=== PATIENT | male | born 1970 | race Caucasian/White ===

== ENCOUNTER 2017-07-03 16:34 | Inpatient (IN) | payer MEDICAID ==
--- NOTE | 2017-07-03 16:53 | CPEKG ---
Heart Rate: 118 RR Interval: 508 P-R Interval: 136 QRSD Interval: 84 QT Interval: 332 QTC Interval: 466 P Ogden: 77 QRS Ogden: 74 T Wave Ogden: 63 EKG Severity - OTHERWISE NORMAL ECG - EKG Impression: SINUS TACHYCARDIA Electronically Signed By: Migue Up 03-Jul-2017 17:06:40
--- NOTE | 2017-07-03 17:04 | EDPHY ---
H & P HPI/ROS: I did not see this patient while he was in the emergency department. Care was provided by another caregiver in our department Smoking Status: Current every day smoker Constitutional: Initial Vital Signs Temperature (C) 36.7 C 07/03/17 16:36 Heart Rate 123 H 07/03/17 16:36 Respiratory Rate 24 H 07/03/17 16:36 Blood Pressure 156/96 H 07/03/17 16:36 O2 Sat (%) 91 L 07/03/17 16:36 O2 Delivery Mode Room Air Allergies/Adverse Reactions: No Known Allergies Allergy (Unverified 07/03/17 16:41) Home Medications: Medication Instructions Recorded Cyclobenzaprine [Flexeril 10 MG 20 - 30 mg PO TID PRN 07/03/17 (*)] Docusate Sodium [Colace 100 MG (*)] 100 mg PO DAILY@14 07/03/17 Docusate Sodium [Colace 100 MG (*)] 300 mg PO HS 07/03/17 Methadone HCl [Methadone HCl 10 mg 75 mg PO DAILY@07/03/17 (*)] Naproxen 500 - 1,000 mg PO BID PRN 07/03/17 Ondansetron Odt [Zofran Odt 4 mg 4 mg PO TID PRN 07/03/17 (*)] Ranitidine HCl [Zantac] 300 - 450 mg PO TID PRN 07/03/17 Medical Decision Making - Diagnostics EKG Interpretation: EKG interpreted by me shows sinus tachycardia. Normal interval and axis. QRS is normal there is no significant ST elevation or depression. No arrhythmia. The ventricular response is 118 Imaging Results: Imaging Impressions Chest X-Ray 07/03/17 16:46 Impression: Rounded opacity in the right lower lung may represent a rounded pneumonia, however, a nodule or mass could have a similar appearance. Recommend follow-up chest x-ray in CT chest in 6-8 weeks to verify resolution. - Data Points Laboratory Results: Laboratory Results 07/03/17 17:00 07/03/17 17:00 07/03/17 07/03/17 07/03/17 17:00 17:00 17:00 WBC RBC Hgb Hct MCV MCH MCHC RDW Plt Count MPV Neut % (Auto) Lymph % (Auto) Wake % (Auto) Eos % (Auto) Baso % (Auto) Nucleat RBC Rel Count Absolute Neuts (auto) Absolute Lymphs (auto) Absolute Monos (auto) Absolute Eos (auto) Absolute Basos (auto) Absolute Nucleated RBC Immature Gran % Immature Gran # PT INR APTT D-Dimer VBG Lactic Acid 2.3 mmol/L H mmol/L (0.7-2.1) Sodium 138 mEq/L mEq/L (134-144) Potassium 4.1 mEq/L mEq/L (3.5-5.2) Chloride 100 mEq/L mEq/L (97-110) Carbon Dioxide 22 mEq/l mEq/l (22-31) Anion Gap 16 mEq/L mEq/L (8-16) BUN 28 mg/dL H mg/dL (7-23) Creatinine 2.2 mg/dL H mg/dL (0.7-1.3) Estimated GFR 32 Glucose 83 mg/dL mg/dL (70-100) Calcium 9.9 mg/dL mg/dL (8.5-10.4) Total Bilirubin 0.9 mg/dL mg/dL (0.1-1.4) Conjugated Bilirubin 0.8 mg/dL H mg/dL (0.0-0.5) Unconjugated Bilirubin 0.1 mg/dL mg/dL (0.0-1.1) AST 24 IU/L IU/L (17-59) ALT 27 IU/L IU/L (21-72) Alkaline Phosphatase 139 IU/L H IU/L (38-126) Troponin I < 0.012 ng/mL ng/mL (0.000-0.034) NT-Pro-B Natriuret Pep 85 pg/mL pg/mL (0-125) Total Protein 8.7 g/dL H g/dL (6.3-8.2) Albumin 4.3 g/dL g/dL (3.5-5.0) Lipase 137 IU/L IU/L (23-300) Procalcitonin Pending 07/03/17 07/03/17 17:00 17:00 WBC 17.04 10^3/uL H 10^3/uL (3.80-9.50) RBC 4.84 10^6/uL 10^6/uL (4.40-6.38) Hgb 14.1 g/dL g/dL (13.7-17.5) Hct 42.9 % % (40.0-51.0) MCV 88.6 fL fL (81.5-99.8) MCH 29.1 pg pg (27.9-34.1) MCHC 32.9 g/dL g/dL (32.4-36.7) RDW 13.3 % % (11.5-15.2) Plt Count 293 10^3/uL 10^3/uL (150-400) MPV 10.0 fL fL (8.7-11.7) Neut % (Auto) 83.1 % H % (39.3-74.2) Lymph % (Auto) 9.9 % L % (15.0-45.0) Wake % (Auto) 5.1 % % (4.5-13.0) Eos % (Auto) 0.1 % L % (0.6-7.6) Baso % (Auto) 0.4 % % (0.3-1.7) Nucleat RBC Rel Count 0.0 % % (0.0-0.2) Absolute Neuts (auto) 14.18 10^3/uL H 10^3/uL (1.70-6.50) Absolute Lymphs (auto) 1.68 10^3/uL 10^3/uL (1.00-3.00) Absolute Monos (auto) 0.87 10^3/uL H 10^3/uL (0.30-0.80) Absolute Eos (auto) 0.01 10^3/uL L 10^3/uL (0.03-0.40) Absolute Basos (auto) 0.06 10^3/uL 10^3/uL (0.02-0.10) Absolute Nucleated RBC 0.00 10^3/uL 10^3/uL (0-0.01) Immature Gran % 1.4 % H % (0.0-1.1) Immature Gran # 0.24 10^3/uL H 10^3/uL (0.00-0.10) PT 13.1 SEC SEC (12.0-15.0) INR 1.00 (0.83-1.16) APTT 31.1 SEC SEC (23.0-38.0) D-Dimer 0.52 ug/mLFEU H ug/mLFEU (0.00-0.50) VBG Lactic Acid Sodium Potassium Chloride Carbon Dioxide Anion Gap BUN Creatinine Estimated GFR Glucose Calcium Total Bilirubin Conjugated Bilirubin Unconjugated Bilirubin AST ALT Alkaline Phosphatase Troponin I NT-Pro-B Natriuret Pep Total Protein Albumin Lipase Procalcitonin Medications Given: Discontinued Medications Sodium Chloride (Ns) 1,000 mls @ 0 mls/hr IV EDNOW ONE; Wide Open PRN Reason: Protocol Stop: 07/03/17 17:15 Last Admin: 07/03/17 17:48 Dose: 1,000 mls Azithromycin 500 mg/ Dextrose 255 mls @ 255 mls/hr IV EDNOW ONE PRN Reason: Protocol Stop: 07/03/17 18:47 Last Admin: 07/03/17 19:16 Dose: 255 mls Ceftriaxone Sodium/Dextrose (Rocephin 1 Gm (Premix)) 50 mls @ 100 mls/hr IV EDNOW ONE PRN Reason: Protocol Stop: 07/03/17 18:17 Last Admin: 07/03/17 18:07 Dose: 50 mls Departure - Departure Disposition: [facility] Inpatient Acute Clinical Impression: Community acquired pneumonia, Sepsis, Shortness of breath, Acute chest pain Condition: Good
--- NOTE | 2017-07-03 17:07 | EDPHY ---
General - History Smoking Status: Current every day smoker Narrative: CHIEF COMPLAINT: Chest pain, shortness of breath HISTORY OF PRESENT ILLNESS: Patient complains of chest pain, shortness of breath, lightheaded dizziness. The chest pain started this morning. It is left-sided retrosternal. Worse with exertion. The shortness of breath is described as severe. Worse with any kind of exertion. Has to stop and take at rest with short distances of walking. No fever or chills. No cough. No abdominal pain. Some nausea but no vomiting. No diaphoresis. No recent travel or injury. No recent trauma or surgery. No history of venous thrombolic event. Denies previous coronary artery disease, stroke or heart attack. Denies any history of cardiac stress test or catheterization. No other associated complaints or modifying factors. REVIEW OF SYSTEMS: Ten systems reviewed and are negative unless otherwise noted in the HPI PAST MEDICAL HISTORY: Described as "multiple." Significant for rheumatoid arthritis and methadone use PAST SURGICAL HISTORY: Reviewed SOCIAL HISTORY: 1-2 pack per day smoker. No alcohol. No drug use. Lives and works here locally. FAMILY HISTORY: Positive for coronary artery disease in 1st degree family. EXAMINATION General Appearance: Alert, no distress Head: normocephalic, atraumatic Eyes: Pupils equal and round, no conjunctival pallor or injection ENT, Mouth: Poor dentition. Mucous membranes moist. Airway patent. Neck: Normal inspection, supple, non-tender Respiratory: Mild tachypnea. Scattered rhonchi. No consolidation, retractions or distress. No diminishment. Cardiovascular: Tachycardic rate. Regular rhythm. No murmur. Gastrointestinal: Abdomen is soft and nontender. No distention. No rigidity. Well-healed surgical incisions. Back: non-tender, no bony abnormalities Neurological: A&O, nonfocal, normal gait Skin: Warm and dry, no rash. No petechiae or purpura Extremities: Nontender, no pedal edema Psychiatric: Mood and affect normal DIFFERENTIAL DIAGNOSES: Including but not limited to ACS, CHF, pneumonia, PE, pleurisy, bronchitis, sepsis MDM: 4:55 p.m. Chest pain with shortness of breath, dizziness and near-syncope. He was tachycardic and tachypneic, thus I ordered lactic acid and blood cultures. Dr. Up has been notified of his SIRS criteria. He is in no acute distress. Laboratory studies pending. EKG does not reveal any ischemia. 5:15 p.m. Lactic acid is elevated 2.3, thus I have ordered IV fluid. Will obtain 2nd set of blood cultures and continue with workup. 5:45 p.m. Creatinine is 2.2. Patient says he has had issues with his kidneys last year. He does not know what is most recent creatinine was but knows that was abnormal last year. He had a complicated history with this. We will attempt to obtain out laboratory study. Does have leukocytosis with pneumonia on chest x-ray. Treat with Rocephin and Zithromax. I will discuss the abnormal creatinine, the equivocally elevated D-dimer with the hospitalist. 5:55 p.m. Attempt was made to contact his primary care physician. They have no documentation of any previous or recent creatinine. 6:05 p.m. Case discussed with hospitalist Dr. Avalos. She will admit the patient to her service. He is admitted in stable condition. He is admitted with diagnosis of sepsis without severe sepsis, community-acquired pneumonia. We discussed IV Rocephin and Zithromax for we discussed the elevated creatinine with uncertain chronicity. We also discussed the mildly elevated D-dimer. EKG: Interpreted by Dr. Up. Sinus tachycardia. No acute ischemia. Patient seen in conjunction with Dr. Up ([facility]) Medical Decision Making: I did not see this patient while he was in the emergency department. However his care was discussed with the PA while the patient was in the department. I agree with treatment plan and management (Migue Up) - Diagnostics Imaging Results: Imaging Impressions Chest X-Ray 07/03/17 16:46 Impression: Rounded opacity in the right lower lung may represent a rounded pneumonia, however, a nodule or mass could have a similar appearance. Recommend follow-up chest x-ray in CT chest in 6-8 weeks to verify resolution. - Objective Vital Signs: Initial Vital Signs Temperature (C) 36.7 C 07/03/17 16:36 Heart Rate 123 H 07/03/17 16:36 Respiratory Rate 24 H 07/03/17 16:36 Blood Pressure 156/96 H 07/03/17 16:36 O2 Sat (%) 91 L 07/03/17 16:36 O2 Delivery Mode Room Air Allergies/Adverse Reactions: No Known Allergies Allergy (Unverified 07/03/17 16:41) Home Medications: Medication Instructions Recorded Cyclobenzaprine [Flexeril 10 MG 20 - 30 mg PO TID PRN 07/03/17 (*)] Docusate Sodium [Colace 100 MG (*)] 100 mg PO DAILY@14 07/03/17 Docusate Sodium [Colace 100 MG (*)] 300 mg PO HS 07/03/17 Methadone HCl [Methadone HCl 10 mg 75 mg PO DAILY@07/03/17 (*)] Naproxen 500 - 1,000 mg PO BID PRN 07/03/17 Ondansetron Odt [Zofran Odt 4 mg 4 mg PO TID PRN 07/03/17 (*)] Ranitidine HCl [Zantac] 300 - 450 mg PO TID PRN 07/03/17 Laboratory Results: Laboratory Results 07/03/17 17:00 07/03/17 17:00 07/03/17 07/03/17 07/03/17 17:00 17:00 17:00 WBC RBC Hgb Hct MCV MCH MCHC RDW Plt Count MPV Neut % (Auto) Lymph % (Auto) Hale % (Auto) Eos % (Auto) Baso % (Auto) Nucleat RBC Rel Count Absolute Neuts (auto) Absolute Lymphs (auto) Absolute Monos (auto) Absolute Eos (auto) Absolute Basos (auto) Absolute Nucleated RBC Immature Gran % Immature Gran # PT INR APTT D-Dimer VBG Lactic Acid 2.3 mmol/L H mmol/L (0.7-2.1) Sodium 138 mEq/L mEq/L (134-144) Potassium 4.1 mEq/L mEq/L (3.5-5.2) Chloride 100 mEq/L mEq/L (97-110) Carbon Dioxide 22 mEq/l mEq/l (22-31) Anion Gap 16 mEq/L mEq/L (8-16) BUN 28 mg/dL H mg/dL (7-23) Creatinine 2.2 mg/dL H mg/dL (0.7-1.3) Estimated GFR 32 Glucose 83 mg/dL mg/dL (70-100) Calcium 9.9 mg/dL mg/dL (8.5-10.4) Total Bilirubin 0.9 mg/dL mg/dL (0.1-1.4) Conjugated Bilirubin 0.8 mg/dL H mg/dL (0.0-0.5) Unconjugated Bilirubin 0.1 mg/dL mg/dL (0.0-1.1) AST 24 IU/L IU/L (17-59) ALT 27 IU/L IU/L (21-72) Alkaline Phosphatase 139 IU/L H IU/L (38-126) Troponin I < 0.012 ng/mL ng/mL (0.000-0.034) NT-Pro-B Natriuret Pep 85 pg/mL pg/mL (0-125) Total Protein 8.7 g/dL H g/dL (6.3-8.2) Albumin 4.3 g/dL g/dL (3.5-5.0) Lipase 137 IU/L IU/L (23-300) Procalcitonin Pending 07/03/17 07/03/17 17:00 17:00 WBC 17.04 10^3/uL H 10^3/uL (3.80-9.50) RBC 4.84 10^6/uL 10^6/uL (4.40-6.38) Hgb 14.1 g/dL g/dL (13.7-17.5) Hct 42.9 % % (40.0-51.0) MCV 88.6 fL fL (81.5-99.8) MCH 29.1 pg pg (27.9-34.1) MCHC 32.9 g/dL g/dL (32.4-36.7) RDW 13.3 % % (11.5-15.2) Plt Count 293 10^3/uL 10^3/uL (150-400) MPV 10.0 fL fL (8.7-11.7) Neut % (Auto) 83.1 % H % (39.3-74.2) Lymph % (Auto) 9.9 % L % (15.0-45.0) Hale % (Auto) 5.1 % % (4.5-13.0) Eos % (Auto) 0.1 % L % (0.6-7.6) Baso % (Auto) 0.4 % % (0.3-1.7) Nucleat RBC Rel Count 0.0 % % (0.0-0.2) Absolute Neuts (auto) 14.18 10^3/uL H 10^3/uL (1.70-6.50) Absolute Lymphs (auto) 1.68 10^3/uL 10^3/uL (1.00-3.00) Absolute Monos (auto) 0.87 10^3/uL H 10^3/uL (0.30-0.80) Absolute Eos (auto) 0.01 10^3/uL L 10^3/uL (0.03-0.40) Absolute Basos (auto) 0.06 10^3/uL 10^3/uL (0.02-0.10) Absolute Nucleated RBC 0.00 10^3/uL 10^3/uL (0-0.01) Immature Gran % 1.4 % H % (0.0-1.1) Immature Gran # 0.24 10^3/uL H 10^3/uL (0.00-0.10) PT 13.1 SEC SEC (12.0-15.0) INR 1.00 (0.83-1.16) APTT 31.1 SEC SEC (23.0-38.0) D-Dimer 0.52 ug/mLFEU H ug/mLFEU (0.00-0.50) VBG Lactic Acid Sodium Potassium Chloride Carbon Dioxide Anion Gap BUN Creatinine Estimated GFR Glucose Calcium Total Bilirubin Conjugated Bilirubin Unconjugated Bilirubin AST ALT Alkaline Phosphatase Troponin I NT-Pro-B Natriuret Pep Total Protein Albumin Lipase Procalcitonin Medications Given: Discontinued Medications Sodium Chloride (Ns) 1,000 mls @ 0 mls/hr IV EDNOW ONE; Wide Open PRN Reason: Protocol Stop: 07/03/17 17:15 Last Admin: 07/03/17 17:48 Dose: 1,000 mls Azithromycin 500 mg/ Dextrose 255 mls @ 255 mls/hr IV EDNOW ONE PRN Reason: Protocol Stop: 07/03/17 18:47 Last Admin: 07/03/17 19:16 Dose: 255 mls Ceftriaxone Sodium/Dextrose (Rocephin 1 Gm (Premix)) 50 mls @ 100 mls/hr IV EDNOW ONE PRN Reason: Protocol Stop: 07/03/17 18:17 Last Admin: 07/03/17 18:07 Dose: 50 mls Departure - Departure Disposition: [facility] Inpatient Acute Clinical Impression: Shortness of breath, Acute chest pain Community acquired pneumonia Qualifiers: Laterality: right Lung location: lower lobe of lung Qualified Code(s): J18.1 - Lobar pneumonia, unspecified organism Sepsis Qualifiers: Sepsis type: sepsis due to unspecified organism Qualified Code(s): A41.9 - Sepsis, unspecified organism Condition: Good
[2017-07-03 17:14] LABS: % IMMATURE GRANULYOCYTES 1.4 % (0.0-1.1); ABSOLUTE IMMATURE GRANULOCYTES 0.24 10^3/uL (0.00-0.10); ADD DIFF? NO; ADD MORPH? NO; ADD SCAN? NO; ATYPICAL LYMPHOCYTE FLAG 10 (0-99); FRAGMENT RBC FLAG 0 (0-99); HEMATOCRIT 42.9 % (40.0-51.0); HEMOGLOBIN 14.1 g/dL (13.7-17.5); LEFT SHIFT FLG 10 (0-99); LIPEMIA HEMOLYSIS FLAG 80 (0-99); MEAN CELL HEMOGLOBIN 29.1 pg (27.9-34.1); MEAN CELL HEMOGLOBIN CONCENTR. 32.9 g/dL (32.4-36.7); MEAN CELL VOLUME 88.6 fL (81.5-99.8); PLATELET CLUMPS FLAG 0 (0-99); PLATELET COUNT 293 10^3/uL (150-400); RED BLOOD CELL COUNT 4.84 10^6/uL (4.40-6.38); RED CELL DISTRIBUTION WIDTH 13.3 % (11.5-15.2)
[2017-07-03] MEDS ORDERED: NS 1,000 ML IV ONE (17:14)
[2017-07-03 17:25] LABS: PROTIME(PATIENT) 13.1 SEC (12.0-15.0)
[2017-07-03 17:26] LABS: ALANINE AMINOTRANSFERASE 27 IU/L (21-72); ALBUMIN 4.3 g/dL (3.5-5.0); ALKALINE PHOSPHATASE 139 IU/L (38-126); ANION GAP 16 mEq/L (8-16); APTT 31.1 SEC (23.0-38.0); ASPARTATE AMINOTRANSFERASE 24 IU/L (17-59); BILIRUBIN,TOTAL 0.9 mg/dL (0.1-1.4); BILIRUBIN-CONJUGATED 0.8 mg/dL (0.0-0.5); BILIRUBIN-UNCONJUGATED 0.1 mg/dL (0.0-1.1); CALCIUM 9.9 mg/dL (8.5-10.4); CARBON DIOXIDE 22 mEq/l (22-31); CHLORIDE 100 mEq/L (97-110); CREATININE 2.2 mg/dL (0.7-1.3); GLOMERULAR FILTRATION RATE 32; GLUCOSE 83 mg/dL (70-100); POTASSIUM 4.1 mEq/L (3.5-5.2); SODIUM 138 mEq/L (134-144); TOTAL PROTEIN 8.7 g/dL (6.3-8.2)
[2017-07-03 17:38] LABS: TROPONIN I < 0.012 ng/mL (0.000-0.034)
[2017-07-03] MEDS ORDERED: AZITHROMYCIN IV 500 MG in D5W 250 ML IV ONE (17:48)
[2017-07-03 18:06] LABS: LACGHOST ORDER
[2017-07-03] MEDS ORDERED: ONDANSETRON DISINTEGRATING 4 MG TAB PO PRN (18:33)
[2017-07-03] MEDS ORDERED: ACETAMINOPHEN 325 MG TAB PO PRN (18:33)
[2017-07-03] MEDS ORDERED: IPRATROPIUM/ALBUTEROL 3 ML DEYVIAL IH PRN (18:33)
[2017-07-03] MEDS ORDERED: ONDANSETRON 4 MG/2 ML VIAL IVP PRN (18:33)
[2017-07-03] MEDS ORDERED: ASPIRIN 325 MG TAB PO ONE (18:40)
[2017-07-03] MEDS ORDERED: NS 1,000 ML IV SCH (18:45)
[2017-07-03] MEDS ORDERED: ALBUTEROL 3 ML DEYVIAL IH PRN (20:16)
[2017-07-03] MEDS ORDERED: ENOXAPARIN 60 MG/0.6 ML SYR SC ONE (20:20)
[2017-07-03] MEDS: DOCUSATE SODIUM 100 MG CAP PO SCH (20:22)
[2017-07-03] MEDS ORDERED: NICOTINE 21 MG/24 HR PATCH TD SCH (20:30)
[2017-07-03] MEDS: IPRATROPIUM/ALBUTEROL 3 ML DEYVIAL IH SCH (20:31)
[2017-07-03] MEDS ORDERED: FAMOTIDINE 20 MG TAB PO PRN (21:00)
--- NOTE | 2017-07-03 21:16 | GHP ---
[f rep st] HISTORY AND PHYSICAL DATE OF ADMISSION: 07/03/2017 CHIEF COMPLAINT: Chest pain, shortness of breath, and cough. HISTORY OF PRESENT ILLNESS: The patient is a 47-year-old male with a history of tobacco abuse and prior pneumonia complicated by empyema, for which he was hospitalized in [place] last year, presents to the emergency department with chest pain and shortness of breath. He denies fevers and chills. He denies any significant cough. He reports he has a chronic pain in his right chest, which has been present since he was admitted with pneumonia and an empyema requiring a chest tube last year in an [place] hospital. Today, he developed worsening shortness of breath, and felt like he could not catch his breath. This caused him to panic, and he presented to the emergency department. Upon arrival to the emergency department, he was tachycardic, though afebrile, and was saturating 91% on room air. Chest x-ray revealed rounded opacity in the right lower lobe, possibly representing pneumonia. In the emergency department, the patient was given a liter of normal saline, ceftriaxone, and azithromycin, and he is admitted to the hospital for further management. PAST MEDICAL HISTORY: 1. Tobacco abuse. 2. Chronic pain with chronic continuous opioid use, followed by a methadone clinic. 3. History of pneumonia with empyema, requiring a chest tube. 4. Possible chronic kidney disease. 5. History of kidney stones. MEDICATIONS: Please see [employer] for complete updated outpatient medication list. ALLERGIES: No known drug allergies. SOCIAL HISTORY: Single and lives independently. 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 He smokes 1-2 packs per day. He denies alcohol and drug use. FAMILY HISTORY: His mom had diabetes. He also reports a significant family history of heart disease. REVIEW OF SYSTEMS: A 10-point review of systems was performed and is negative except as per HPI. OBJECTIVE: VITAL SIGNS: Currently temperature 36.7, blood pressure 100/64, heart rate 97, respiratory rate 18, and 95% on room air. GENERAL: Awake, alert , oriented, and in no acute distress. HEENT: Head is atraumatic, normocephalic. Pupils equal, round, and reactive to light. Extraocular movements intact. Oropharynx is clear. Mucous membranes are moist. He has poor dentition and is missing multiple teeth. NECK: Supple. No JVD. HEART: Regular rate and rhythm. LUNGS: Diminished on the right side with faint crackles and decreased air exchange. ABDOMEN: Soft, nondistended, and nontender with normoactive bowel sounds. EXTREMITIES: Without cyanosis, clubbing, or edema. NEUROLOGIC: Grossly nonfocal. LABORATORY DATA: CBC: White blood cell count of 17,000 with 83% neutrophils. Lactic acid is elevated at 2.3. D-dimer 0.52. INR is 1. Complete metabolic panel is remarkable for BUN 28, creatinine 2.2. Alkaline phosphatase 139. Troponin is negative. BNP is normal. Chest x-ray shows a rounded opacity in the right lower lung, possibly representing a pneumonia versus nodule or mass. ASSESSMENT AND PLAN: The patient is a 47-year-old male with a history of tobacco abuse and prior pneumonia, who presents to the hospital with chest pain and shortness of breath. 1. Chest pain and dyspnea. The patient was treated for pneumonia in the emergency department with ceftriaxone and azithromycin. He does meet sepsis criteria with leukocytosis and tachycardia on arrival. In addition, he has an elevated lactate. However, he has had no fevers or significant cough and appears nontoxic. I ordered a CT of his chest without contrast, and this reveals multiple spiculated nodules worrisome for multifocal malignancy, the largest of which is 3.5 cm in the right middle lobe. Given his history of pneumonia last year, I query if that was a postobstructive process. In the setting of leukocytosis and sepsis criteria, I think it is reasonable to continue treatment for community-acquired pneumonia with ceftriaxone and azithromycin. Blood cultures are pending. Will continue to trend his lactate and his white blood cell count. I discussed the case with Dr. Shaneka Norton, oncology, who will see the patient tomorrow. We will need to determine if any of these pulmonary nodules are amenable to biopsy. Will defer further imaging, such as a PET scan, to oncology service. I also suspect his emphysema is playing a role in his dyspnea. Will start him on scheduled DuoNeb with p.r.n. albuterol nebulizations. He is not requiring oxygen. I also consider pulmonary embolism. His D-dimer is just minimally elevated at 0.52. Unfortunately, he cannot undergo a CT pulmonary angiogram at this time given his elevated creatinine. Currently, his tachycardia is resolved and he is not hypoxemic; however, he is certainly at risk for thromboembolic disease given the CT findings are concerning for malignancy. I will give him a dose of therapeutic Lovenox tonight, and if his creatinine is improved in the morning with hydration, he could undergo CT pulmonary angiogram; otherwise, could consider a V/Q scan. 2. Multiple pulmonary nodules. As above, these are concerning for malignancy. Oncology consultation is requested. He may warrant further imaging. 3. Acute kidney injury. It is unclear if he has chronic kidney disease; though , he seems to think that is the case. I will check a urinalysis as well as a urine creatinine and urine sodium to calculate a FENa for further evaluation. In addition, will give him some gentle IV fluid hydration overnight and recheck his kidney function in the morning. Consider CT abd/pelvis in am given above if creatinine improved. 4. Tobacco abuse. Will offer nicotine patch while he is here. 5. Deep venous thrombosis prophylaxis. Lovenox. CODE STATUS: Patient is full code. DISPOSITION: Patient is admitted to inpatient status as he will likely require greater than 48 hours hospitalization for further workup and management options of his multiple pulmonary nodules and associated dyspnea. /[id number]/MODL MTDD
[2017-07-03] MEDS: NICOTINE 21 MG/24 HR PATCH TD SCH (21:24)
[2017-07-03] MEDS: CYCLOBENZAPRINE 10 MG TAB PO PRN (22:34)
[2017-07-03 23:52] LABS: COLOR YELLOW; LEUKOCYTE ESTERASE,URINE NEGATIVE (NEGATIVE); NITRITE,URINE NEGATIVE (NEGATIVE)
[2017-07-03 23:58] LABS: BACTERIA 1+ /hpf (NONE SEEN); HYALINE CASTS 15-25 /lpf (0-1); MUCUS TRACE /lpf (NONE-1+)
[2017-07-04] MEDS: IPRATROPIUM/ALBUTEROL 3 ML DEYVIAL IH SCH ×4 (05:40→19:43)
[2017-07-04 05:41] LABS: ANION GAP 9 mEq/L (8-16); CALCIUM 8.2 mg/dL (8.5-10.4); CARBON DIOXIDE 22 mEq/l (22-31); CHLORIDE 105 mEq/L (97-110); CREATININE 1.6 mg/dL (0.7-1.3); GLOMERULAR FILTRATION RATE 46; GLUCOSE 90 mg/dL (70-100); POTASSIUM 4.4 mEq/L (3.5-5.2); SODIUM 136 mEq/L (134-144)
[2017-07-04] MEDS: METHADONE HCL 10 MG TAB PO SCH (06:03)
[2017-07-04 06:04] LABS: % IMMATURE GRANULYOCYTES 0.5 % (0.0-1.1); ABSOLUTE IMMATURE GRANULOCYTES 0.03 10^3/uL (0.00-0.10); ADD DIFF? NO; ADD MORPH? NO; ADD SCAN? NO; ATYPICAL LYMPHOCYTE FLAG 20 (0-99); FRAGMENT RBC FLAG 0 (0-99); HEMATOCRIT 33.8 % (40.0-51.0); HEMOGLOBIN 10.9 g/dL (13.7-17.5); LEFT SHIFT FLG 0 (0-99); LIPEMIA HEMOLYSIS FLAG 80 (0-99); MEAN CELL HEMOGLOBIN 28.9 pg (27.9-34.1); MEAN CELL HEMOGLOBIN CONCENTR. 32.2 g/dL (32.4-36.7); MEAN CELL VOLUME 89.7 fL (81.5-99.8); MEAN PLATELET VOLUME 10.2 fL (8.7-11.7); PLATELET CLUMPS FLAG 0 (0-99); PLATELET COUNT 207 10^3/uL (150-400); RED BLOOD CELL COUNT 3.77 10^6/uL (4.40-6.38); RED CELL DISTRIBUTION WIDTH 13.4 % (11.5-15.2)
[2017-07-04] MEDS: NICOTINE 21 MG/24 HR PATCH TD SCH (10:10)
[2017-07-04] MEDS: CYCLOBENZAPRINE 10 MG TAB PO PRN ×3 (10:17→20:52)
[2017-07-04 12:56] LABS: LACTATE DEHYDROGENASE 312 IU/L (313-618)
--- NOTE | 2017-07-04 12:57 | GCON ---
[f rep st] CONSULTATION ONCOLOGY CONSULTATION REFERRING PHYSICIAN: Makenzie Avalos MD REASON FOR CONSULTATION: Chest mass. HISTORY OF PRESENT ILLNESS: The patient is a 47-year-old gentleman with severe COPD, who presented t o the emergency room with increasing shortness of breath and right-sided pain. He does not have a hi story of cancer, but a year ago he was admitted to the hospital in, I believe, [place], [place], with a s evere pneumonia and what sounds like an empyema. He states that he had a mass at that time, but it w as "dealt with" with drains, and he was in the hospital for 2 or 3 weeks. He did have a fever at keegan t time. After he was discharged from the hospital, he did not have any followup. He moved to the [place], [place] area around November because of work opportunities. He believes over the last few mo nths he has lost about 25-30 pounds and he has been having increasing pain over the right side. He a lso reports having night sweats, although those have been ongoing for the last 2 years. He also has headaches that may be worse with shooting pain, but denies any extremity weakness. He does have occa sional numbness in his arms when he is asleep. He also has constant nausea, but denies any sudden ch jenelle in his vision. ALLERGIES: He has no known drug allergies. HOME MEDICATIONS: Include methadone 75 mg daily, Ranitidine, naproxen, ondansetron, cyclobenzaprine, and docusate. CHRONIC ILLNESSES: 1. 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 2. Chronic pain. 3. Nephrolithiasis. 4. Pneumonia with possible empyema as described in HPI. SURGICAL HISTORY: Includes colostomies at least x2 as a child. SOCIAL HISTORY: He is single. 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 He smokes about 1-2 packs per day, he has for at least 30 years. He denies any alcohol or i llicit drug use. FAMILY HISTORY: Mother is alive at age approximately 67. Father is alive, age approximately 75. No history of cancer. One sister, 2 years older, with no history of cancer. One daughter in good heal th. Most of his family lives back in [place]. REVIEW OF SYSTEMS: 10-point review of systems performed. Pertinent positives in HPI, otherwise nega tive. PHYSICAL EXAMINATION: VITAL SIGNS: His temperature on arrival is 36.7, currently 36.8. Pulse is ar ound 100. It was 123 when he came in. Blood pressure is currently 98/58, and it had been higher whe n he first came in. Saturating 96% on 3 L. He was 91% on arrival. GENERAL: He is a thin gentleman . He has trouble sitting still, but in no distress. HEENT: Sclerae nonicteric. Pupils equal, roun d, reactive to light. A little bit constricted. Oral mucosa shows edentulous on the top, poor denta l health on the bottom. LUNGS: A little bit diminished with some slight rhonchi on the right, but e xam is unremarkable. HEART: Regular without murmur. ABDOMEN: Soft, nontender, without hepatosplen omegaly. EXTREMITIES: No edema. Upper and lower extremities are normal. Reflexes are hyporeflexic throughout. NEUROLOGICAL: He appears to be oriented to person, place, and time. LABORATORY DATA: On arrival, his hemoglobin is 14.1. After hydration, he is down to about 10.9 g/dL . Platelet count was 17,000 on arrival, now it is down to 6300. Platelet count is normal. Differen tial on arrival was a little left shifted. D-dimer is slightly elevated at 0.52, but coags are tony l. Lactic acid was elevated at 2.3. It is now normalized. BUN and creatinine are elevated at 28 an d 2.2. They are about the same at 29 and 1.6. Calcium is normal. Bilirubin is normal. Alk phos is up slightly to 139. Total protein is elevated at 8.7. Albumin is 4.3. UA unremarkable. Cultures are still pending. EKG was unremarkable. Chest CT, which was reviewed with Dr. Wei, shows si gnificant emphysema. He has a mass in the right middle lobe anterior to the major fissure measuring 3.5 cm, and there are 2 separate spiculated masses in the left upper lobe at 17 and 19 mm. There may be some other smaller ones that are nonspecific. No lymphadenopathy. Gallbladder was distended. Silivo Wei with the patient's pneumonia history was not as certain that these represented malignan cy versus other possibilities such as scarring. IMPRESSION: 1. Chest masses. 2. Constitutional symptoms with weight loss and night sweats. 3. Renal insufficiency. Unclear how long this has been present. 4. Chronic pain, on chronic methadone. 5. History of Hirschsprung's with multiple bowel surgeries in the past. It is not entirely clear whether or not this is malignancy. The larger mass could potentially be araceli ched with CT guidance, but Dr. Wei was a little bit concerned about his risk of pneumothorax. He recommended we try to get his old films from [place] to see if there has been significant change. P ET scan might be helpful, but it will not differentiate between cancer and infection. If these are a ll PET negative, then it is unlikely to be either. Since we got a scan without contrast, I have rodney mmended we get an ultrasound of his kidneys and liver. I do not have an explanation for the pain in his right side at this time as the CT scan was nonrevealing. I spoke with Dr. Singer with [facility] and decided to perhaps have an opinion by Pulmonology of whether or not there might be utility from bronchoscopy. Finally, with nausea, headaches, weight loss, and possible lung cancer, recommen d we get a brain MRI while he is here. /[id number]/MODL
--- NOTE | 2017-07-04 14:36 | HOSPPROG ---
Hospitalist Progress Note Assessment/Plan: This is a 47-year-old male history of tobacco abuse, prior pneumonia that required what seems to be vats surgery and possible biopsy presents with: # chest pain shortness of breath and cough suspect community-acquired pneumonia although his procalcitonin is only mildly elevated his symptoms could be a result of some other inflammatory reaction or metastatic disease # multiple spiculated pulmonary nodules of unclear etiology # SARA (Improving) # tobacco abuse Plan -continue ceftriaxone and azithromycin -discussed case Dr. Norton from Oncology and will plan to obtain his prior CT results as well as previous lung biopsy results prior to proceeding with further diagnostic intervention. I also discussed case with Dr. Paolo Coreas from pulmonology who does not think lesions would be amendable to bronchoscopy given the fact that they are mostly peripheral in location. Disposition: Continue inpatient care Subjective: improved chest pain. Denies any fevers but does have night sweats. Reports 30 lb of weight loss since November this year. Objective: Vital Signs Temp Pulse Resp BP Pulse Ox 36.7 C 96 18 96/54 L 97 07/04/17 12:02 07/04/17 12:02 07/04/17 12:02 07/04/17 12:02 07/04/17 12:02 Laboratory Results 07/04/17 04:56 07/04/17 04:56 07/03/17 07/04/17 07/05/17 05:59 05:59 05:59 Intake Total 150 Output Total 300 320 Balance -150 -320 PT 13.1 SEC (12.0-15.0) 07/03/17 17:00 INR 1.00 (0.83-1.16) 07/03/17 17:00 - Physical Exam Constitutional: no apparent distress, appears nourished, not in pain Ears, Nose, Mouth, Throat: other ( Poor dentition) Cardiovascular: regular rate and rhythym, no murmur, rub, or gallop Respiratory: no respiratory distress, no rales or rhonchi, clear to auscultation Neurologic: AAOx3, sensation intact bilaterally ICD10 Worksheet Patient Problems: Problems Problem Status Onset Community acquired pneumonia Acute Sepsis Acute Shortness of breath Acute Acute chest pain Acute
[2017-07-04] MEDS ORDERED: GADOBUTROL 10 ML VIAL IVP ONE (14:39)
--- NOTE | 2017-07-04 14:56 | ASMTCMCOM ---
CM Note CM Note Notes: Pt admitted with PNeumonia but also has masses in chest. Pt has had brain MRI today and is being seeing by oncology because of weight loss and elevated labs. Case management will continue to follow. Date Signed: 07/04/2017 02:56 PM Electronically Signed By:PASHA Urban
[2017-07-04] MEDS: DOCUSATE SODIUM 100 MG CAP PO SCH ×2 (15:43→20:50)
[2017-07-04] MEDS ORDERED: AZITHROMYCIN IV 500 MG in D5W 250 ML IV SCH (19:00)
[2017-07-04] MEDS: ENOXAPARIN 40 MG/0.4 ML SYR SC SCH (20:49)
[2017-07-05 05:26] LABS: % IMMATURE GRANULYOCYTES 0.5 % (0.0-1.1); ABSOLUTE IMMATURE GRANULOCYTES 0.03 10^3/uL (0.00-0.10); ADD DIFF? NO; ADD MORPH? NO; ADD SCAN? NO; ATYPICAL LYMPHOCYTE FLAG 10 (0-99); FRAGMENT RBC FLAG 20 (0-99); HEMATOCRIT 32.6 % (40.0-51.0); HEMOGLOBIN 10.8 g/dL (13.7-17.5); LEFT SHIFT FLG 0 (0-99); LIPEMIA HEMOLYSIS FLAG 80 (0-99); MEAN CELL HEMOGLOBIN 29.6 pg (27.9-34.1); MEAN CELL HEMOGLOBIN CONCENTR. 33.1 g/dL (32.4-36.7); MEAN CELL VOLUME 89.3 fL (81.5-99.8); PLATELET CLUMPS FLAG 0 (0-99); PLATELET COUNT 179 10^3/uL (150-400); RED BLOOD CELL COUNT 3.65 10^6/uL (4.40-6.38); RED CELL DISTRIBUTION WIDTH 13.6 % (11.5-15.2)
[2017-07-05] MEDS: IPRATROPIUM/ALBUTEROL 3 ML DEYVIAL IH SCH ×3 (05:32→15:09)
[2017-07-05 05:43] LABS: ALANINE AMINOTRANSFERASE 26 IU/L (21-72); ALBUMIN 3.1 g/dL (3.5-5.0); ALKALINE PHOSPHATASE 82 IU/L (38-126); ANION GAP 10 mEq/L (8-16); ASPARTATE AMINOTRANSFERASE 17 IU/L (17-59); BILIRUBIN,TOTAL 0.3 mg/dL (0.1-1.4); CALCIUM 8.5 mg/dL (8.5-10.4); CARBON DIOXIDE 24 mEq/l (22-31); CHLORIDE 105 mEq/L (97-110); CREATININE 1.2 mg/dL (0.7-1.3); GLOMERULAR FILTRATION RATE > 60; GLUCOSE 100 mg/dL (70-100); POTASSIUM 4.3 mEq/L (3.5-5.2); SODIUM 139 mEq/L (134-144); TOTAL PROTEIN 6.4 g/dL (6.3-8.2)
[2017-07-05] MEDS: CYCLOBENZAPRINE 10 MG TAB PO PRN ×2 (06:10→13:51)
[2017-07-05] MEDS: METHADONE HCL 10 MG TAB PO SCH (06:10)
[2017-07-05] MEDS: NICOTINE 21 MG/24 HR PATCH TD SCH (10:03)
[2017-07-05] MEDS: ENOXAPARIN 40 MG/0.4 ML SYR SC SCH (10:04)
[2017-07-05 10:37] VITALS: TEMP 97.6; O2SAT 95
--- NOTE | 2017-07-05 10:58 | SOAPPROG ---
SOAP Progress Note Assessment/Plan: E&M for chest mass * Chest mass with pain, wt loss: Etiology unclear. Radiology concerned about risk of pneumo with biopsy. His symptoms seem more severe with the small amount of disease and seems improved with infection and COPD therapy. From oncology standpoint, I recommend f/u with me in a couple of weeks and will get repeat Chest CT in 2-4 weeks. Will try to get his old films to compare. If growing, can consider PET: negative = no further workup; positive = consider biopsy. * COPD: encouraged him to stop smoking. Continue standard therapy. * ARF: seems resolved with hydration * * Disposition: ok to go home per onc when cleared by Dr. Singer Subjective: Breathing easier. Still with pain right side but a little better. Objective: Vital Signs Temp Pulse Resp BP Pulse Ox 36.4 C 98 20 108/56 L 95 07/05/17 10:33 07/05/17 10:33 07/05/17 10:33 07/05/17 10:33 07/05/17 10:33 Laboratory Results 07/05/17 04:58 07/05/17 04:58 07/04/17 07/05/17 07/06/17 05:59 05:59 05:59 Intake Total 150 Output Total 300 1820 Balance -150 -1820 PT 13.1 SEC (12.0-15.0) 07/03/17 17:00 INR 1.00 (0.83-1.16) 07/03/17 17:00 MRI of the Brain (Without and With Contrast) Impression: 1. A few nonspecific hyperintense T2/FLAIR signal abnormalities in the white matter of bilateral cerebral hemispheres. Differential diagnosis includes mild microvascular ischemic gliosis, migraine- related sequela, atypical demyelinating disease, or postinfectious/post inflammatory sequela. 2. No acute infarct, acute hemorrhage, hydrocephalus or mass effect. 3. No enhancing masses or cerebral metastasis. 4. No sinusitis. Dictated By: Trae Braun Complete Abdominal Ultrasound Impression: 1. Mild splenomegaly. 2. 7-mm simple right renal cyst. 3. Limited study as above. Dictated By: Isai Wei MD Laboratory Tests 07/04/17 07/04/17 07/04/17 04:56 04:56 12:29 Hgb 10.9 L Creatinine 1.6 H Lactate Dehydrogenase 312 L 07/05/17 07/05/17 04:58 04:58 Hgb 10.8 L Creatinine 1.2 Lactate Dehydrogenase Physical Exam - Physical Exam General Appearance: no apparent distress Respiratory: decreased breath sounds, No rhonchi Cardiac/Chest: regular rate, rhythm Abdomen: non-tender, soft Skin: other (tender over previous chest tube site), No rash ICD10 Worksheet Patient Problems: Problems Problem Status Onset Acute chest pain Acute Community acquired pneumonia Acute Sepsis Acute Shortness of breath Acute
[2017-07-05 12:37] VITALS: BP 112/68; PULSE 102; RESP 16
[2017-07-05] MEDS: DOCUSATE SODIUM 100 MG CAP PO SCH (13:51)
--- NOTE | 2017-07-05 14:02 | GDS ---
[f rep st] DISCHARGE SUMMARY DISCHARGE DIAGNOSES: 1. Chest pain and shortness of breath. Suspect viral pneumonia versus bacterial community-acquired pneumonia versus worsening of his underlying inflammatory lung disease. 2. Multiple spiculated pulmonary nodules of unclear etiology. 3. Resolved acute kidney injury. 4. History of tobacco abuse. CONSULTANTS: Shaneka Norton MD, Oncology. HOSPITAL COURSE: By problem: 1. Chest pain with spiculated nodules seen on his chest CT: The patient was admitted to the [facility] where he was started on empiric treatment for community-acquired pneumonia with azithromycin and ce ftriaxone. With antibiotics, his chest pain and work of breathing improved. A procalcitonin done on admission was in the low range, which does make bacterial infection less likely. A CT of the chest was done that showed multiple bilateral areas of spiculated pulmonary nodularity, which the initial R adiologist thought to be worrisome for multifocal lung malignancy. A second Radiologist who reviewed the images was not as convinced. Oncology was consulted and brain MRI was done, which did not revea l any metastatic disease. An abdominal ultrasound was done, and showed mild splenomegaly and a 7 mm simple right renal cyst. 2. On the day of discharge, the patient states he feels a lot better. The plan will be for him to b e discharged with outpatient followup. We did attempt to obtain his records from [place] to figure out what happened when he was hospitalized last for pneumonia, at which time, it sounds like he had empye ma and underwent VATS and chest tube placement. PHYSICAL EXAM: VITAL SIGNS: On day of discharge, blood pressure 112/68, pulse of 102, respiratory r ate 16, O2 saturation 95% on room air. GENERAL: No acute distress. LUNGS: Clear. No wheezes, ral es, or rhonchi. ABDOMEN: Soft. EXTREMITIES: No edema. PERTINENT LABS AND STUDIES: Done on this hospital stay: 1. A chest CT done 07/03/2017, refer to report. 2. A brain MRI done 07/04/2017, refer to report. 3. Abdominal ultrasound done 07/05/2017, refer to report. 4. Blood cultures no growth. DISCHARGE MEDICATIONS: Please refer to discharge medication reconciliation in [facility] for full deta ils. Below is a preliminary list. New medications on hospital discharge: 1. Levofloxacin 750 mg p.o. daily for 5 days. 2. Albuterol MDI 1 to 2 puffs q.6 hours p.r.n. wheezing. DISCHARGE INSTRUCTIONS: 1. The patient will be discharged from the hospital to complete a course of antibiotics. 2. He is to follow up with Dr. Norton with a repeat chest CT in 2 to 4 weeks. 3. It would be nice to obtain his old records to further compare the studies and also to obtain any culture biopsy results. If the CT is positive, PET scan should be considered. Copy requested to: [facility] /[id number]/MODL
[2017-07-05 14:42] LABS: HEPATITIS Bs Ab QUANT <5.0 mIU/mL
--- NOTE | 2017-07-05 16:23 | ASDISCHSUM ---
Discharge Information Plan Status:Home with No Needs Medically Cleared to Leave:07/05/2017 Discharge Date:07/05/2017 CM D/C Disposition:Home, Routine, Self-Care ADT D/C Disposition:Home, Routine, Self-Care Projected Discharge Date:07/05/2017 Transportation at D/C:Friend Discharge Delay Reason: Follow-Up Date:07/05/2017 Discharge Slot: Final Diagnosis: Placement Information Patient Contact Information Contact Name:ZOHAIB Relationship:Father Address: City: [facility] Phone: State/Zip Code: Email: Financial Information Financial Class: Primary Plan Desc:[employer] [place] Primary Plan Number:[id number] Secondary Plan Desc: Secondary Plan Number: Assessment Information [facility] CM Progress Note CM Note CM Note Notes: Pt admitted with PNeumonia but also has masses in chest. Pt has had brain MRI today and is being seeing by oncology because of weight loss and elevated labs. Case management will continue to follow. Date Signed: 07/04/2017 02:56 PM Electronically Signed By:MIHIR Urban [facility] CM Progress Note CM Note CM Note Notes: Pt is discharging home today with no CM needs and will f/u with his oncologist. He also plans to refile documents to reinstate his Food [place]. He stated he has friends and neighbors to help him when he gets home. Date Signed: 07/05/2017 04:22 PM Electronically Signed By:MIHIR [place] Intervention Information
== END 2017-07-05 16:20 | disposition home or self-care (01) | DRG 194 ==
LOC: F1N 19:41
PROVIDERS: ADMIT Hospitalist; ATTEND Family Medicine
DX: J18.9 Pneumonia, unspecified organism (principal); J12.9 Viral pneumonia, unspecified; J44.9 Chronic obstructive pulmonary disease, unspecified; F17.210 Nicotine dependence, cigarettes, uncomplicated; R91.8 Other nonspecific abnormal finding of lung field; N17.9 Acute kidney failure, unspecified; Z72.0 Tobacco use; R63.4 Abnormal weight loss; G89.29 Other chronic pain; Z79.891 Long term (current) use of opiate analgesic
CPT/HCPCS: 86705-90; 87385-90; 96374; A9585; G0472; J0456; J0696; J1650